=== PATIENT | male | born 1935 | race Caucasian/White ===

== ENCOUNTER → 2019-07-12 | Outpatient (CLI) | payer MEDICARE ==
[~2019-07-12] MED LIST: REGADENOSON 0.4 MG/5 ML SYR IV ONE
--- NOTE | 2019-07-12 16:10 | Myoview Stress Test ---
DATE OF STUDY: 07/12/2019 08:04:00 Stress Test - Treadmill ONLY Cardiology Nuclear Stress Test STRESS SUMMARY: The patient underwent pharmacologic stress testing utilizing Lexiscan under the usual protocol. Baseline heart rate was 96 beats per minute and decreased to 84 beats per minute. Blood pressure at baseline was 116/81 and miles to 124/95 with stress. The patient elicited no cardiac symptoms throughout the stress protocol. ELECTROCARDIOGRAPHIC STRESS SUMMARY: The patient's baseline 12-lead electrocardiogram showed atrial fibrillation with nonspecific ST-T wave abnormalities. There were no ischemic changes on his electrocardiogram nor any further arrhythmias. MYOCARDIAL PERFUSION IMAGING: The patient received technetium-99m tetrofosmin at both rest and stress. The images revealed a [id number] caliber severe mid to distal anterior and apical transmural scar. Gated ejection fraction was estimated at 22%. CONCLUSIONS: 1. Normal clinical, hemodynamic, and electrocardiographic, Lexiscan stress test. 2. Abnormal myocardial perfusion imaging showing a [id number], severe mid to distal anterior and apical scar. 3. Abnormal left ventricular systolic function with gated imaging revealing a left ventricular ejection fraction of 22%. DO ARMANDO Gonzalez/SLOANE /[id number]
== END ==
LOC: NM 07:35
PROVIDERS: ATTEND Internal Medicine
DX: I25.10 Atherosclerotic heart disease of native coronary artery without angina pectoris (principal); R06.02 Shortness of breath
CPT/HCPCS: 78452; 93017; 93306; A9502; J2785